=== PATIENT | male | born 1970 | race African-American/Black ===

== ENCOUNTER → 2019-03-10 | Outpatient (CLI) | payer BC, OTHER, SELFPAY ==
[2019-03-10 14:24] LABS: Absolute Lymphocyte Count 4.25 X10^3/uL (0.83-4.51); Absolute Neutrophil Count 10.2 X10^3/uL (2.0-7.7); Basophil# 0.02 X10^3/uL; Basophil% 0.1 % (0-1); Eosinophil# 0.02 X10^3/uL; Eosinophils% 0.1 % (0-5); Hematocrit 46.1 % (40-54); Hemoglobin 15.2 g/dL (13.0-16.5); Lymphocyte # 4.25 X10^3/ul (4.0); Lymphocyte % 26.9 % (19-41); Mean Corpuscular Hgb 29.1 pg (27.0-32.0); Mean Corpuscular Volume 88.3 fL (80-94); Mean Platelet Vol. 10.9 fl (6.2-12.0); Monocyte# 1.29 X10^3/uL; Monocyte% 8.2 % (0-10); NRBC Flagged by Analyzer 0 % (0-5); Neutrophil # 10.17 X10^3/uL (2.7-7.7); Neutrophil % 64.3 % (47-70); Platelet Count 220 K/mm3 (150-450); RBC Distribution Width SD 44.9 fl (35.1-43.9); Red Blood Count 5.22 M/mm3 (4.6-6.2); White Blood Count 15.8 K/mm3 (4.4-11.0)
[2019-03-10 14:35] LABS: ALB/GLOB Ratio 1.1 RATIO (0.9-2.4); AST(SGOT) 7 U/L (15-37); Alanine Aminotransfer ALT/SGPT 35 U/L (16-61); Albumin, Serum 3.7 g/dL (3.2-5.0); Alkaline Phosphatase 61 U/L (45-117); Anion Gap 5 (5-15); BUN 15 mg/dL (7-18); BUN/Creat Ratio 16.2 RATIO (10-20); Calcium,Total 10.6 mg/dL (8.5-10.1); Chloride 103 mmol/L (98-107); Cholesterol 230 mg/dL (200); Creatinine, Serum 0.93 mg/dL (0.70-1.30); EST Glomerular Filtration Rate 93 mL/min (>60); Est Glom Filt Rate - Afr Amer 112 mL/min (>60); Globulin 3.4 g/dL (2.2-4.2); Glucose 93 mg/dL (74-106); High Density Lipoprotein 53 mg/dL; Potassium 4.1 mmol/L (3.5-5.1); Protein, Total 7.1 g/dL (6.4-8.2); Sodium Level 135 mmol/L (136-145); Triglycerides 145 mg/dL; Very Low Density Lipoprotein 29 mg/dL (5-40)
[2019-03-10 15:01] LABS: BNP,B-Type NATRIURETIC PEPTIDE 33.1 pg/mL (0-100)
[2019-03-10 15:55] LABS: Vitamin D,25 Hydroxy 13.9 ng/mL (29.95-100.01)
[2019-03-10 17:33] LABS: Color, Urine Yellow (Yellow); Glucose, Dipstick Normal (Normal); Ketone-Dipstick Negative (Negative); Leukocyte Esterase-Dipstick Negative /ul (Negative); Nitrite-Dipstick Negative (Negative); Occult Blood-Urine Negative /ul (Negative); Protein-Dipstick Negative (Negative); Specific Gravity, Urine 1.025 (1.002-1.030); Urine Bilirubin Dipstick Negative (Negative); Urine Clarity Clear (Clear); Urine Urobilinogen Normal (Normal)
[2019-03-12 14:08] LABS: Red Blood Cell Count Test/G6PD 5.19 x10E6/uL (4.14-5.80)
[2019-03-12 18:46] LABS: G6PD Quant Test 306 (146-376)
== END | disposition home or self-care (01) ==
LOC: MTLAB 13:07
PROVIDERS: Family Provider Family Medicine; PCP Family Medicine; Referring Provider Nurse Practitioner Family; Visit Provider Nurse Practitioner Family
DX: M62.81 Muscle weakness (generalized) (principal); E66.9 Obesity, unspecified; R53.82 Chronic fatigue, unspecified
CPT/HCPCS: 36415; 80053; 80061; 81002; 82306; 82955; 83880; 85025

== ENCOUNTER 2019-12-21 19:36 | Emergency (ER) | payer BC, OTHER, SELFPAY ==
[2019-12-21] VITALS (8 sets, daily range): BP systolic 134–152; BP diastolic 87–105; PULSE 106–112; RESP 18–31; TEMP 36.3–37.1; O2SAT 95–97; BMI 38.0
--- NOTE | 2019-12-21 19:42 | EKG12_ITS ---
Test Reason : SEIZURE Blood Pressure : / mmHG Vent. Rate : 112 BPM Atrial Rate : 112 BPM P-R Int : 168 ms QRS Dur : 088 ms QT Int : 336 ms P-R-T Axes : 040 -01 010 degrees QTc Int : 458 ms Sinus tachycardia Nonspecific ST and T wave abnormality Abnormal ECG Confirmed by KEYUR ESTES, CHITO ([id number]), newspaper editor TRINITY ROONEY ([id number]) on 12/23/2019 1:02:38 PM Referred By: DC Confirmed By:CHITO BAER MD
[2019-12-21] MEDS: levETIRAcetam IV 1,000 MG/100 ML BAG 400 MG IV (19:47)
[2019-12-21] MEDS: LORazepam 2 MG/ML Syringe IV ×3 (19:47→20:11)
[2019-12-21 19:51] LABS: Bedside Glucose 115 mg/dL (70-110)
[2019-12-21] MEDS: Etomidate 20 MG/10 ML Vial IV (20:30)
[2019-12-21] MEDS: Succinylcholine Chloride 200 MG/10 ML Vial 150 MG IV (20:31)
--- NOTE | 2019-12-21 20:34 | CT_ITS ---
STUDY: CT BRAIN WITHOUT CONTRAST REASON FOR EXAM: Male, 49 years old. SEIZURE,PT HAS GLIOBLASTOMA AND GETS CHEMO -- PT HAS HAD NO SEIZURES SINCE JANUARY RADIATION DOSAGE (If Supplied By Facility): CTDIvol = ( 44.99 ) mGy, DLP = ( 863.60 ) mGycm TECHNIQUE: Transaxial CT imaging of the brain was performed without administration of intravenous contrast material. Individualized dose optimization techniques were used for this CT. COMPARISON: No relevant priors. FINDINGS: Normal soft tissue structures. There is a craniotomy defect of the posterior right parietal bone. There is a region with scattered amorphous calcification of the bilateral posterior parietal lobes involving an area overall approximately 5.6 x 3.3 x 2.9 cm. There is surrounding white matter edema. There is no evidence of midline shift. There are areas of decreased attenuation within the white matter tracts of the supratentorial brain, consistent with microvascular disease changes. Normal basal ganglia and thalami. Normal brainstem. Normal cerebellum. There is no intracranial hemorrhage. There are no findings of an acute ischemic infarction. Normal visualized paranasal sinuses. CT/Brain/Head without Contrast IMPRESSION: Region with scattered in orifice calcification of the bilateral posterior parietal lobes involving area overall approximately 5.6 x 3.3 x 2.9 cm, with surrounding white matter edema. This would correspond to the focus of previously documented glioblastoma. There is no evidence of midline shift or bleed in the region. Electronically Signed: Eliazar Teran MD at 21:13 EDT , Service support ,
--- NOTE | 2019-12-21 20:41 | ED.VISSUMM ---
- ER Visit Summary Date of Service: 12/21/19 Chief Complaint: Seizure History of Present Illness: The patient is a 49 M who arrives with his family. Prior to arrival, he started seizing. He has a history of a brain tumor and seizures. He normally takes Keppra 750 mg twice a day. His forgot his dose today. He is also dealing with a rash. He has a peeling skin rash over his trunk for several days. His oncology doctor referred him to a local urgent care for steroids. The patient recently finished chemotherapy a week ago. He is treated at [facility]. He had an MRI 3 weeks ago that showed his brain tumor had improved, decreased in size. Nothing new. Otherwise, history is limited because of seizure activity. Physical Examination: Afebrile and vital signs unremarkable except for heart rate of 111 and respiratory rate of 21. Patient has gaze deviation to the right. Pupils are reactive. He has a tremor of his right upper extremity. He is incontinent of urine. He has a peeling rash to most of his trunk. Test Results: EKG shows sinus rhythm at a rate of 112. Labs are pending at the time of this dictation. Imaging is pending at the time of this dictation. Emergency Department Course and Treatment: Patient was seen immediately on arrival. IV access was obtained. He was placed on the monitor. He was treated with Ativan 2 mg with no response. Keppra was started. He received additional Ativan, 2 mg. He continued to have gaze deviation to the right and shaking of his upper extremity. Keppra completed. He received an additional 2 mg of Ativan. He continued to have tremors with gaze deviation and was not returning to normal mental status. Patient is in status epilepticus. He will need a facility with neurology and neurosurgery possibly. Family requested [facility]. The patient was accepted to the ER by Dr. Javier. For his safety, the patient was intubated by me. This was performed using a glide scope. He was treated with etomidate and succinylcholine. Intubated on the first attempt. Visualized passing the cords. Good color change. Good condensation. Good chest rise. Equal breath sounds. Abdomen quiet. Patient is medicated with Versed. [facility] is on the way. Will get chest x-ray and CT brain prior to their arrival. Results are pending. Treatment Plan: As above Disposition: Transfer to [facility] Impression: Status epilepticus History of brain tumor Skin rash This note was generated with [employer] dictation software. It may contain incorrect words, spelling, and punctuation that were not noted in review of the chart prior to signing ED Disposition - Plan for ED Patient: Referrals: Stew Shaikh MD [Primary Care Provider] -
[2019-12-21] MEDS: Propofol 200 MG/20 ML Vial 40 MG IV BOLUS ×2 (20:45→20:55)
[2019-12-21 20:49] LABS: Bacteria 0 SEEN /hpf (None Seen); Mucous, Urine 0 SEEN /hpf (<or=2+); Red Blood Cells-Urine 0 SEEN /hpf (0-5); Squamous Epithelial Cells - UA 0 SEEN /hpf (0-5)
--- NOTE | 2019-12-21 20:55 | RAD_ITS ---
STUDY: X-RAY CHEST REASON FOR EXAM: Male, 49 years old. OG TUBE AND ET TUBE PLACEMENT TECHNIQUE: Single AP portable view of the chest. COMPARISON: None. FINDINGS: energy trading analyst leads are seen. There is an endotracheal tube with tip 3.7 cm proximal to the marycruz. A nasogastric tube is also noted appearing in adequate position. There is a poor inspiration. There is no demonstrated pleural abnormality. Normal size heart. Normal mediastinum and radha. Normal visualized pulmonary arteries. Normal visualized aortic arch and descending thoracic aorta. Normal visualized thoracic spine. Normal visualized ribs, clavicles, and shoulders. There is no demonstrated abnormality of the visualized soft tissue structures of the upper abdomen. RAD/Chest 1 View (Portable) IMPRESSION: Nasogastric and endotracheal tubes seen appearing in adequate position. Poor inspiration. Electronically Signed: Eliazar Teran MD at 21:15 EDT , Service support ,
[2019-12-21] MEDS: Propofol 10MG/Ml 1,000 MG/100 ML Bottle 7.6 MG CONT INF (21:05)
[2019-12-21 21:43] LABS: Color, Urine Yellow (Yellow); Glucose, Dipstick Normal (Normal); Leukocyte Esterase-Dipstick 25 /ul (Negative); Nitrite-Dipstick Negative (Negative); Occult Blood-Urine Negative /ul (Negative); Protein-Dipstick 30 mg/dl (Negative); Specific Gravity, Urine 1.025 (1.002-1.030); Urine Bilirubin Dipstick Negative (Negative); Urine Clarity Sl. Cloudy (Clear); Urine Urobilinogen Normal (Normal)
[2019-12-21 21:58] LABS: Ketone-Dipstick 150 mg/dl (Negative)
[2019-12-21 22:00] LABS: Amorphous Sediment 1+; White Blood Cells 0-5 SEEN /hpf (0-5)
[2019-12-21 22:24] LABS: Amphetamine Urine VISTA NEGATIVE (<1000 ng/mL); Barbiturate Urine VISTA NEGATIVE (< 200 ng/mL); Benzodiazepine Urine VISTA NEGATIVE (< 200 ng/mL); Cocaine Urine VISTA NEGATIVE (< 300 ng/mL); Ecstacy Urine VISTA NEGATIVE (< 500 ng/mL); Methadone Urine VISTA NEGATIVE (< 300 ng/mL); PCP Urine VISTA NEGATIVE (< 25 ng/mL); THC Urine VISTA NEGATIVE (< 50 ng/mL); Vista UDS pH Range 6
== END 2019-12-21 21:35 | disposition short-term general hospital (02) ==
LOC: ED 20:07
PROVIDERS: Emergency Provider Emergency Medicine; PCP Family Medicine
DX: G40.901 Epilepsy, unspecified, not intractable, with status epilepticus (principal); R21 Rash and other nonspecific skin eruption; C71.9 Malignant neoplasm of brain, unspecified; Z79.899 Other long term (current) drug therapy
CPT/HCPCS: 31500; 51702; 70450; 71045; 80307; 81001; 82962; 93005; 96365; 96367; 96368; 96375; 99251; 99285; J7030; A4216; G0463; J0330